=== PATIENT | female | born 1960 | race Two or more races ===

== ENCOUNTER 2024-05-02 13:28 | Inpatient (IN) | payer MEDICAID, OTHER ==
[~2024-05-02] VITALS: Ht 154.9 cm; Wt 11.5 kg
--- NOTE | 2024-05-02 13:37 | ED.PDOC ---
History of Present Illness HPI Comments 63-year-old female came to the ER stating that she has been having abdominal pain for the past three days. Abdominal pain associated with nausea but no vomiting or diarrhea. She has the pain is mostly in the suprapubic region. States that she does have a history of a kidney stones. Pain is 8/10 with no relief with Tylenol. History of diabetes. Denies any other symptoms. Time Seen by MD: 13:32 Reviewed Notes: Nurses Notes, Medications, Allergies Information Source: Patient Mode of Arrival: Ambulatory Severity: Moderate Timing: Days Duration: Since onset Past Medical History PAST MEDICAL HISTORY: DM Surgical History: Denies all surgeries BOTTOM CEMENTER History: No Pertinent BOTTOM CEMENTER History Social History Smoker: Non-Smoker Alcohol: Denies ETOH Use Drugs: Denies Drug Use Constitutional: denies: chills, diaphoresis, fatigue, fever, malaise, sweats, weakness, others EENTM: denies: blurred vision, double vision, ear bleeding, ear discharge, ear drainage, ear pain, ear ringing, eye pain, eye redness, hearing loss, mouth pain, mouth swelling, nasal discharge, nose bleeding, nose congestion, nose pain, photophobia, tearing, throat pain, throat swelling, voice changes, others Respiratory: denies: cough, hemoptysis, orthopnea, SOB at rest, shortness of breath, SOB with excertion, stridor, wheezing, others Cardiovascular: denies: chest pain, dizzy spells, diaphoresis, Dyspnea on exertion, edema, irregular heart beat, left arm pain, lightheadedness, palpitations, PND, syncope, others Gastrointestinal: reports: abdominal pain, nausea; denies: abdomen distended, blood streaked bowels, constipated, diarrhea, dysphagia, difficulty swallowing, hematemesis, melena, poor appetite, poor fluid intake, rectal bleeding, rectal pain, vomiting, others Genitourinary: denies: abnormal vagina bleeding, burning, dyspareunia, dysuria, flank pain, frequency, hematuria, incontinence, pain, , vagina discharge, urgency, others Neurological: denies: dizziness, fainting, headache, left sided numbness, left sided weakness, numbness, paresthesia, pre-existing deficit, right sided numbness, right sided weakness, seizure, speech problems, tingling, tremors, weakness, others Musculoskeletal: denies: back pain, gout, joint pain, joint swelling, muscle pain, muscle stiffness, neck pain, others Integumetry: denies: bruises, change in color, change in hair/nails, dryness, laceration, lesions, lumps, rash, wounds, others Allergic/Immunocompromised: denies: Difficulty Healing, Frequent Infections, Hives, Itching, others Hematologic/Lymphatic: denies: anemia, blood clots, easy bleeding, easy bruising, swollen glands, others Endocrine: denies: excessive hunger, excessive sweating, excessive thirst, excessive urination, flushing, intolerance to cold, intolerance to heat, unexplained weight gain, unexplained weight loss, others Psychiatric: denies: anxiety, bipolar disorder, depression, hopeless, panic disorder, schizophrenia, sleepless, suicidal, others Physical Exam General Appearance: Moderate Distress HEENT: Normal ENT Inspection, Pharynx Normal, TMs Normal Neck: Full Range of Motion, Non-Tender, Normal, Normal Inspection Respiratory: Chest Non-Tender, Lungs Clear, No Accessory Muscle Use, No Respiratory Distress, Normal Breath Sounds Cardiovascular: No Edema, No JVD, No Murmur, No Gallop, Normal Peripheral Pulses, Regular Rate/Rhythm Breast Exam: Deferred Gastrointestinal: Soft Genitalia: Deferred Pelvic: Deferred Rectal: Deferred Extremities: No calf tenderness, Normal capillary refill, Normal inspection, Normal range of motion, Non-tender, No pedal edema Musculoskeletal : Apperance: Normal 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 Was a procedure done?: No Differential Dx Considerations may include: Colitis Electrolyte imbalance X-Ray, Labs, Meds, VS Vital Signs Date Time Temp Pulse Resp B/P (MAP) Pulse Ox O2 Delivery O2 Flow Rate FiO2 05/02/24 13:37 97.9 82 16 131/76 (94) 98 Lab Test 05/02/24 14:42 Range/Units White Blood Count Pending Red Blood Count Pending Hemoglobin Pending Hematocrit Pending Mean Corpuscular Volume Pending Mean Corpuscular Hemoglobin Pending Mean Corpuscular Hemoglobin Concent Pending Red Cell Distribution Width Pending Platelet Count Pending Mean Platelet Volume Pending Neutrophils (%) (Auto) Pending Lymphocytes (%) (Auto) Pending Monocytes (%) (Auto) Pending Basophils (%) (Auto) Pending Neutrophils # (Auto) Pending Lymphocytes # (Auto) Pending Monocytes # (Auto) Pending Sodium Level 129 L 136-145 mmol/L Potassium Level 4.5 3.5-5.1 mmol/L Chloride Level 95 L 98-107 mmol/L Carbon Dioxide Level 24 20-31 mmol/L Anion Gap 10 5-15 Blood Urea Nitrogen 15 9-23 mg/dL Creatinine 1.17 H 0.550-1.02 mg/dL Glomerular Filtration Rate Calc 53 >90 mL/min BUN/Creatinine Ratio 12.8 10.0-20.0 Serum Glucose 496 *H 74-106 mg/dL Calcium Level 10.3 8.7-10.4 mg/dL Patient alert. Complaining of abdominal pain. Vitals stable. Ambulating. Abdomen is soft. Possible kidney stone. Establish intravenous access. Was given fluids. Was given Toradol. Explained to the patient. Continue cardiac monitoring. Time of 1ST Reevaluation: 13:36 Reevaluation 1ST: Unchanged Patient Education/Counseling: Diagnosis, Treatment, Prognosis Family Education/Counseling: Need For Follow Up Departure 1 Departure Time of Disposition: 13:37 Impression: Primary Impression: Uncontrolled diabetes mellitus Qualified Codes: E13.65 - Other specified diabetes mellitus with hyperglycemia Additional Impression: Nonspecific colitis Disposition: ADMITTED INPATIENT Admit to: Med Surg Condition: Guarded Critical Care Note Critical Care Time?: No Stability Stability form required: No Heart Score Heart Score: Heart Score Response (Comments) Value History N/A 0 EKG N/A 0 Age N/A 0 Risk Factors N/A 0 Troponin N/A 0 Total 0 MICHELLE KAPOOR MD May 02, 2024 13:37
[2024-05-02 15:20] LABS: Potassium 4.5 mmol/L (3.5-5.1)
[2024-05-02 15:21] LABS: Anion Gap 10 (5-15); Carbon Dioxide 24 mmol/L (20-31)
[2024-05-02 15:22] LABS: Calcium 10.3 mg/dL (8.7-10.4)
[2024-05-02 15:27] LABS: BUN/Creatinine Ratio 12.8 (10.0-20.0); Blood Urea Nitrogen 15 mg/dL (9-23)
[2024-05-02 15:32] LABS: Chloride 95 mmol/L (98-107); Sodium 129 mmol/L (136-145)
[2024-05-02 15:33] LABS: Basophils # (auto) 0 10 ^3/uL (0-0.2); Basophils % (auto) 0.1 % (0.0-2.0); Eosinophils # (auto) 0 10 ^3/uL (0-0.8); Glucose 496 mg/dL (74-106); Hematocrit 42.8 % (36.0-46.0); Hemoglobin 14.4 g/dL (12.2-16.2); Lymphocytes # (auto) 0.9 10 ^3/uL (0.4-5.4); Mean Corpuscular Hemoglobin 30.2 pg (28.0-32.0); Mean Corpuscular Hgb Conc. 33.7 g/dL (32.0-36.0); Mean Corpuscular Volume 89.6 fL (80.0-100.0); Monocytes # (auto) 0.9 10 ^3/uL (0-1.3); Monocytes % (auto) 4.9 % (0.0-12.0); Nucleated Red Blood Cells % 0.1 %; Platelet Count (auto) 182 10^3/uL (140-450); Red Blood Cells 4.77 10^6/uL (4.0-5.20); White Blood Cell 18.8 10^3/uL (4.4-10.8)
--- NOTE | 2024-05-02 16:58 | DVH ---
Procedure: CT CT AB PEL WO CON-NO ORAL OR IV 05/02/2024 04:11 PM Indication: colitis Comparison Study: None available at time of dictation. Technique: Axial images were obtained and reformatted in coronal and sagittal planes. All CT scans at this medical facility are performed using dose modulation techniques as appropriate t o a performed exam including the following: Automated exposure control was utilized; adjustment of th e MA and/or KV according to patient size; and use of iterative reconstruction technique. CT Dose: CTDI volume is 5.8 mGy. Dose-length product is 301 mGy*cm FINDINGS: Lower Chest: Unremarkable. Hepatobiliary: Gallbladder is markedly distended, thick-walled with extensive pericholecystic inflamm ation. Several subcentimeter gallstones are noted in the region of the fundus. Moderate hepatomegaly and hepatic steatosis.. Spleen: Unremarkable. Pancreas: Unremarkable. Adrenal Glands: Unremarkable. tract: The kidneys are normal in size bilaterally without hydronephrosis . Few tiny nonobstructin g right renal calculi are seen. The urinary bladder is unremarkable. GI tract: The stomach is grossly normal in appearance. No evidence of small bowel obstruction. The la rge bowel is unremarkable. Lymphatics: No mesenteric, retroperitoneal or periportal lymphadenopathy. Vasculature: The abdominal aorta is normal in in caliber. Pelvic Organs: Unremarkable Bones/soft tissues: No acute abnormality. Other: None. IMPRESSION: 1. Findings compatible with unoncomplicated acute cholecystitis. Recommend surgical consultation. 2. Moderate hepatomegaly and hepatic steatosis. .
[2024-05-02 17:15] LABS: Lactic Acid w/Reflex 2.4 mmol/L (0.4-2.0)
[2024-05-02] MEDS: SODIUM CHLORIDE 0.9% 1,000 ML IVB ONE (18:20)
[2024-05-02] MEDS: SODIUM CHLORIDE 0.9% 1,450 ML IV ONE (18:21)
[2024-05-02] MEDS: ONDANSETRON HCL 4 MG/2 ML VIAL IV ONE (18:51)
[2024-05-02] MEDS: PIPERACILLIN-TAZOB 3.375GM 100 ML IV ONE (18:52)
[2024-05-02] MEDS: InsuLIN REG 1unit/0.01ml Soln (100units/ml) IV ONE (18:52)
[2024-05-02] MEDS ORDERED: DEXTROSE (50%) 50ML SYRG IV PRN (19:30)
[2024-05-02] MEDS ORDERED: ONDANSETRON HCL 4 MG/2 ML VIAL IV PRN (19:30)
[2024-05-02] MEDS ORDERED: MORPHINE SULFATE INJ 2 MG/ml SYRG IV PRN (19:45)
[2024-05-02 20:29] LABS: INR 1.41 (0.9-1.15); Prothrombin Time 14.4 sec (9.3-11.8)
[2024-05-02 20:35] LABS: Urine Bacteria None Seen /hpf (None Seen)
--- NOTE | 2024-05-02 20:44 | ECG ---
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
--- NOTE | 2024-05-02 20:53 | DVH ---
CHEST RADIOGRAPH Indication: admission Technique: Single frontal view of the chest was obtained Comparison: None FINDINGS: Lines and Tubes: None Lungs: Bilateral perihilar peribronchial thickening. Findings may represent bronchitis. Pleura: No effusion. No pneumothorax. Cardiomediastinal contours: Unremarkable Bones: No acute osseous abnormality. IMPRESSION: 1. Findings may represent bronchitis.
[2024-05-02 21:22] LABS: Urine Blood Negative /uL (Negative); Urine Clarity Clear (Clear); Urine Color Yellow (Yellow); Urine Protein, UAD TRACE (Negative); Urine Specific Gravity 1.026 (1.001-1.035); Urine Squamous Epithelial Cell FEW /hpf (<5); Urine Urobilinogen Normal (Negative); Urine WBC 2 /HPF (0-5); Urine pH 5.5 (5.0-9.0)
[2024-05-02] MEDS: ACCU-CHEK COMFORT CURVE STRIP VI SCH (23:05)
[2024-05-02] MEDS: InsuLIN REG 1unit/0.01ml Soln (100units/ml) SC SCH (23:15)
[2024-05-02] MEDS: ACETAMINOPHEN 325 MG TAB PO PRN (23:17)
[2024-05-03] VITALS (9 sets, daily range): BP systolic 99–137; BP diastolic 55–78; PULSE 101–133; RESP 14–18; TEMP 97.9–100.1; O2SAT 91–99
[2024-05-03] MEDS: PIPERACILLIN-TAZOB 3.375GM 100 ML IV SCH (00:17)
[2024-05-03] MEDS: SODIUM CHLORIDE 0.9% 1,000 ML IV SCH (00:17)
[2024-05-03] MEDS: HYDROcodone-ACET 5/325MG TAB PO PRN (00:19)
--- NOTE | 2024-05-03 00:20 | DVHHP2 ---
Admitting Diagnosis: Acute Cholecystitis, DM with uncontrolled hyperglycemia History of Present Illness History Source: Patient Exam Limitations: No limitations HPI Mrs. Citlali Blake is a 63 yo female with known history of kidney stones, DM presents to the hospital with abdominal pain, nausea, and vomiting. Patient reports she has no history of gallstones. Patient endorses she did not have medical and therefore she has not been able to take her antidiabetic medications due to no prescription, she reports otherwise she is compliant with her home medications. Patient CT abdomen/pelvis resulted 1. Findings compatible with unoncomplicated acute cholecystitis. Recommend surgical consultation. 2. 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 Past Medical History Cardiac: No pertinent Hx Pulmonary: No pertinent Hx Central Nervous System: No pertinent Hx GI: No pertinent Hx Hemotology/Oncology: No pertinent Hx Hepatobiliary: No pertinent Hx Psychiatric: No pertinent Hx Musculoskeletal: No pertinent Hx Rheumotologic: No pertinent Hx Infectious Disease: No peritnent Hx ENT: No pertinent Hx Renal/: No pertinent Hx Endocrine: NIDDM Dermatology: No pertinent Hx Others kidney stones Smoker: No Hx (Negative) Alocohol: None Drugs: None Lives with: With family Domestic Violence: Neg Review of Systems Constitutional: No symptom reported Ears, Nose, & Throat: No symptom reported Eyes: No symptom reported Pulmonary/Respiratory: No symptom reported Cardiovascular: No symptom reported Gastrointestinal: Nausea, Vomiting, Abdominal Pain Genitourinary: No symptom reported Musculoskeletal: No symptom reported Skin: No symptom reported Psychiatric: No symptom reported Endocrine: No symptom reported Hemotologic/Lymphatic: No symptom reported H&P Exam Vital Signs Vital Signs Date Time Temp Pulse Resp B/P (MAP) Pulse Ox O2 Delivery O2 Flow Rate FiO2 05/02/24 23:17 100.7 05/02/24 23:06 Room Air* 0 21 05/02/24 23:05 102 20 97 05/02/24 23:05 127/71 (89) General Appeara: Well developed, Well nourished, Normal Appearance Head Exam: Normal inspection Neck Exam: Normal inspection, Non-tender, Normal alignment Eye Exam: bilateral eye Normal inspection, bilateral eye PERRL, bilateral eye EOMI Ear Exam: bilateral ear Auricle normal Nasal Exam: Normal inspection Mouth: Normal Inspection Pulmonary/Respiratory: Normal inspection, Normal breath sounds, Chest non- tender, Lungs clear Cardiovascular/Chest: Normal inspection, Regular rate, Normal Rhythm Peripheral Pulses: 2+ dorsalis pedis (R), 2+ dorsalis pedis (L), 2+ Radial (R), 2+ Radial (L) Abdominal Exam: Normal bowel sounds, Soft, No tenderness Abdominal Pain Onset Location: Generalized abdomen Rectal Exam: Deferred Back Exam: Normal inspection Pelvic 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: Normal hearing, Normal speech, PERRL Motor/Sensory: Normal sensory function, Normal motor function Neuro/Mental St: Alert, Oriented Appearance: Appropriate appearance, Appropriate insight Eye contact/ Speech: Cooperative, Good eye contact, Normal speech Thoughts/Psych: Normal thought pattern Skin Exam: Normal inspection, Normal color, Warm/dry Labs/Xrays Labs Test 05/02/24 23:04 05/02/24 20:06 05/02/24 19:56 05/02/24 19:04 Range/Units POC Glucose 325 H 70-106 mg/dl Urine Color Yellow Yellow Urine Clarity Clear Clear Urine pH 5.5 5.0-9.0 Urine Specific [place] 1.026 1.001-1.035 Urine Protein Trace H Negative Urine Ketones 1+ H Negative Urine Blood Negative Negative /uL Urine Nitrite Negative Negative Urine Bilirubin Negative Negative Urine Urobilinogen Normal Negative mg/dL Urine Leukocyte Esterase Negative Negative /uL Urine RBC 1 0 - 4 /hpf Urine Microscopic WBC 2 0-5 /HPF Urine Squamous Epithelial Cells Few <5 /hpf Urine Bacteria None seen None Seen /hpf Urine Glucose 4+ H Normal mg/dL Prothrombin Time 14.4 H 9.3-11.8 sec Prothrombin Time INR 1.41 H 0.9-1.15 Lactic Acid Level 2.0 0.4-2.0 mmol/L Test 05/02/24 14:42 Range/Units White Blood Count 18.8 H 4.4-10.8 10^3/uL Red Blood Count 4.77 4.0-5.20 10^6/uL Hemoglobin 14.4 12.2-16.2 g/dL Hematocrit 42.8 36.0-46.0 % Mean Corpuscular Volume 89.6 80.0-100.0 fL Mean Corpuscular Hemoglobin 30.2 28.0-32.0 pg Mean Corpuscular Hemoglobin Concent 33.7 32.0-36.0 g/dL Red Cell Distribution Width 13.0 11.8-14.3 % Platelet Count 182 140-450 10^3/uL Mean Platelet Volume 10.3 6.9-10.8 fL Neutrophils (%) (Auto) 90.0 H 37.0-80.0 % Lymphocytes (%) (Auto) 5.0 L 10.0-50.0 % Monocytes (%) (Auto) 4.9 0.0-12.0 % Eosinophils (%) (Auto) 0.0 0.0-7.0 % Basophils (%) (Auto) 0.1 0.0-2.0 % Neutrophils # (Auto) 17.0 H 1.6-8.6 10 ^3/uL Lymphocytes # (Auto) 0.9 0.4-5.4 10 ^3/uL Monocytes # (Auto) 0.9 0-1.3 10 ^3/uL Eosinophils # (Auto) 0 0-0.8 10 ^3/uL Basophils # (Auto) 0 0-0.2 10 ^3/uL Nucleated Red Blood Cells 0.1 % Sodium Level 129 L 136-145 mmol/L Potassium Level 4.5 3.5-5.1 mmol/L Chloride Level 95 L 98-107 mmol/L Carbon Dioxide Level 24 20-31 mmol/L Anion Gap 10 5-15 Blood Urea Nitrogen 15 9-23 mg/dL Creatinine 1.17 H 0.550-1.02 mg/dL Glomerular Filtration Rate Calc 53 >90 mL/min BUN/Creatinine Ratio 12.8 10.0-20.0 Serum Glucose 496 *H 74-106 mg/dL Calcium Level 10.3 8.7-10.4 mg/dL Assessment/Plan Problem List: (1) Acute cholecystitis (2) Uncontrolled diabetes mellitus Plan This is a 63 yo female with known history of kidney stones, DM who presents with abdominal pain, nausea, vomiting. Patient found to have 1. Acute Cholecystitis 2. DM with uncontrolled hyperglycemia Plan Admit Telemetry General surgeon consultation IV fluids IV antibiotic Zosyn NPO Monitor BMP, CBC, lactic level Glucose monitoring AC & HS coverage with regular insulin sliding scale Discussed all above with patient in Thai. Patient verbalizes agreement and understanding of care plan. All questions were answered. Discussed assessment and care plan with supervising MD. Plan discussed with: Patient, Other Code Visit Code Visit Total Time (mins): 45 Additional Comments Additional Comments Additional Comments 63-year-old female with a known history of diabetes mellitus type 2 who initially presented to the hospital with abdominal pain nausea vomiting worsening for last two three days found to have 1. Sepsis secondary to acute cholecystitis /cholangitis 2. Acute cholecystitis 3. Gram-negative bacteremia 4. Leukocytosis 45. Uncontrolled hyperglycemia in the setting of diabetes mellitus type 2 -IV fluids, IV antibiotics, repeat blood cultures, infectious disease consultation and General surgery consultation. -check hemoglobin A1c, moderate dose insulin sliding scale IVAN RIVERA May 03, 2024 00:20 TRESA ASENCIO MD May 03, 2024 16:37
[2024-05-03 06:01] LABS: Chloride 102 mmol/L (98-107); Potassium 4.1 mmol/L (3.5-5.1)
[2024-05-03 06:02] LABS: Anion Gap 10 (5-15); Calcium 9.7 mg/dL (8.7-10.4); Carbon Dioxide 23 mmol/L (20-31)
[2024-05-03 06:05] LABS: Basophils # (auto) 0 10 ^3/uL (0-0.2); Basophils % (auto) 0.2 % (0.0-2.0); Eosinophils # (auto) 0 10 ^3/uL (0-0.8); Eosinophils % (auto) 0.2 % (0.0-7.0); Hematocrit 36.1 % (36.0-46.0); Hemoglobin 12.1 g/dL (12.2-16.2); Lymphocytes # (auto) 0.6 10 ^3/uL (0.4-5.4); Lymphocytes % (auto) 4.1 % (10.0-50.0); Mean Corpuscular Hemoglobin 29.8 pg (28.0-32.0); Mean Corpuscular Hgb Conc. 33.5 g/dL (32.0-36.0); Mean Corpuscular Volume 89.2 fL (80.0-100.0); Monocytes # (auto) 0.9 10 ^3/uL (0-1.3); Monocytes % (auto) 5.9 % (0.0-12.0); Neutrophils # (auto) 14.2 10 ^3/uL (1.6-8.6); Neutrophils % (auto) 89.6 % (37.0-80.0); Platelet Count (auto) 155 10^3/uL (140-450); Red Blood Cells 4.05 10^6/uL (4.0-5.20); Red Cell Distribution Width 13.3 % (11.8-14.3); White Blood Cell 15.8 10^3/uL (4.4-10.8)
[2024-05-03 06:07] LABS: BUN/Creatinine Ratio 14.1 (10.0-20.0); Blood Urea Nitrogen 11 mg/dL (9-23)
[2024-05-03 06:26] LABS: Glucose 253 mg/dL (74-106); Sodium 135 mmol/L (136-145)
[2024-05-03 09:23] LABS: Albumin 3.8 g/dL (3.2-4.8); Anion Gap 13 (5-15); Aspartate Aminotransferase 36 U/L (13-40); BUN/Creatinine Ratio 15.8 (10.0-20.0); Blood Urea Nitrogen 12 mg/dL (9-23); Calcium 9.7 mg/dL (8.7-10.4); Carbon Dioxide 20 mmol/L (20-31); Chloride 103 mmol/L (98-107); Potassium 4.3 mmol/L (3.5-5.1); Sodium 136 mmol/L (136-145); Total Protein 6.8 g/dL (5.7-8.2)
[2024-05-03] MEDS: PANTOPRAZOLE 40 MG/10 ML VIAL INJ IV SCH (09:28)
[2024-05-03] MEDS: SOD CHL 0.45% WITH 20MEQ KCL 1,000 ML IV SCH (09:28)
[2024-05-03 09:29] LABS: Alanine Aminotransferase 53 U/L (7-40); Alkaline Phosphatase 199 U/L (46-116); Bilirubin, Total 2.8 mg/dL (0.2-1.0); Glucose 254 mg/dL (74-106)
[2024-05-03] MEDS: PHYTONADIONE (VIT K)10 MG/ML 1ML VIAL SUBCUT ONE (09:30)
[2024-05-03] MEDS ORDERED: ENOXAPARIN SOD 40 MG/0.4 ML SYRINGE SC SCH (10:00)
--- NOTE | 2024-05-03 12:13 | DVHINCON2 ---
Date of service: May 03, 2024 Family History: Patient reports no known family medical history. Allergies: Coded Allergies: NO KNOWN ALLERGIES (Unverified , 05/02/24) Current Medications Current Medications Medications (Trade) Dose Ordered Sig/Devaughn Route PRN Reason Start Time Stop Time Status Last Admin Piperacillin Sod/ Tazobactam Sod 100 ml @ 100 mls/hr Q8HR IV 05/02/24 22:00 05/03/24 06:26 Sodium Chloride 1,000 ml @ 100 mls/hr Q10H IV 05/02/24 19:30 05/03/24 08:22 DC 05/03/24 00:17 Diagnostic Test (Pha) (Accu-Chek Comfort Curve T) 1 strip ACHS 05/02/24 22:00 05/03/24 11:55 Insulin Human Regular (InsuLIN R) ACHS SC 05/02/24 22:00 05/03/24 06:41 Dextrose 50 ml UD PRN IV Blood Sugar LESS THAN 60 05/02/24 19:30 Ondansetron HCl (Zofran) 4 mg Q6HP PRN IV NAUSEA / VOMITING 05/02/24 19:30 Enoxaparin Sodium (Lovenox) 40 mg DAILY SC 05/03/24 10:00 05/03/24 08:22 DC Pantoprazole Sodium (Protonix) 40 mg DAILY IV 05/03/24 10:00 05/03/24 09:28 Acetaminophen (Tylenol Tablet) 650 mg Q6HPRN PRN PO TEMP GREATER THAN 100.4 05/02/24 19:45 05/02/24 23:17 Acetaminophen/ Hydrocodone Bitart ([place] 5/325MG Tab) 1 tab Q6HPRN PRN PO PAIN SCALE 1 THRU 6 05/02/24 19:45 05/03/24 06:31 Morphine Sulfate 2 mg Q6HPRN PRN IV PAIN SCALE 7 THRU 10 05/02/24 19:45 Potassium Chloride/Sodium Chloride 1,000 ml @ 120 mls/hr Q8H20M IV 05/03/24 08:15 05/03/24 09:28 Vital Signs Vital Signs Date Time Temp Pulse Resp B/P (MAP) Pulse Ox O2 Delivery O2 Flow Rate FiO2 05/03/24 08:56 98.4 101 16 110/61 (77) 95 98.4 05/03/24 07:45 Room Air* 0 21 Labs/Diagnostic Data Labs Test 05/03/24 06:37 05/03/24 05:38 05/02/24 20:06 05/02/24 19:56 Range/Units POC Glucose 238 H 70-106 mg/dl White Blood Count 15.8 H 4.4-10.8 10^3/uL Red Blood Count 4.05 4.0-5.20 10^6/uL Hemoglobin 12.1 #L 12.2-16.2 g/dL Hematocrit 36.1 # 36.0-46.0 % Mean Corpuscular Volume 89.2 80.0-100.0 fL Mean Corpuscular Hemoglobin 29.8 28.0-32.0 pg Mean Corpuscular Hemoglobin Concent 33.5 32.0-36.0 g/dL Red Cell Distribution Width 13.3 11.8-14.3 % Platelet Count 155 140-450 10^3/uL Mean Platelet Volume 10.0 6.9-10.8 fL Neutrophils (%) (Auto) 89.6 H 37.0-80.0 % Lymphocytes (%) (Auto) 4.1 L 10.0-50.0 % Monocytes (%) (Auto) 5.9 0.0-12.0 % Eosinophils (%) (Auto) 0.2 0.0-7.0 % Basophils (%) (Auto) 0.2 0.0-2.0 % Neutrophils # (Auto) 14.2 H 1.6-8.6 10 ^3/uL Lymphocytes # (Auto) 0.6 0.4-5.4 10 ^3/uL Monocytes # (Auto) 0.9 0-1.3 10 ^3/uL Eosinophils # (Auto) 0 0-0.8 10 ^3/uL Basophils # (Auto) 0 0-0.2 10 ^3/uL Nucleated Red Blood Cells 0.0 % Sodium Level 136 136-145 mmol/L Potassium Level 4.3 3.5-5.1 mmol/L Chloride Level 103 98-107 mmol/L Carbon Dioxide Level 20 20-31 mmol/L Anion Gap 13 5-15 Blood Urea Nitrogen 12 9-23 mg/dL Creatinine 0.76 0.550-1.02 mg/dL Glomerular Filtration Rate Calc 89 >90 mL/min BUN/Creatinine Ratio 15.8 10.0-20.0 Serum Glucose 254 H 74-106 mg/dL Lactic Acid Level 1.3 0.4-2.0 mmol/L Calcium Level 9.7 8.7-10.4 mg/dL Total Bilirubin 2.8 H 0.2-1.0 mg/dL Aspartate Amino Transferase (AST) 36 13-40 U/L Alanine Aminotransferase (ALT) 53 H 7-40 U/L Alkaline Phosphatase 199 H 46-116 U/L Total Protein 6.8 5.7-8.2 g/dL Albumin 3.8 3.2-4.8 g/dL Urine Color Yellow Yellow Urine Clarity Clear Clear Urine pH 5.5 5.0-9.0 Urine Specific [place] 1.026 1.001-1.035 Urine Protein Trace H Negative Urine Ketones 1+ H Negative Urine Blood Negative Negative /uL Urine Nitrite Negative Negative Urine Bilirubin Negative Negative Urine Urobilinogen Normal Negative mg/dL Urine Leukocyte Esterase Negative Negative /uL Urine RBC 1 0 - 4 /hpf Urine Microscopic WBC 2 0-5 /HPF Urine Squamous Epithelial Cells Few <5 /hpf Urine Bacteria None seen None Seen /hpf Urine Glucose 4+ H Normal mg/dL Prothrombin Time 14.4 H 9.3-11.8 sec Prothrombin Time INR 1.41 H 0.9-1.15 Microbiology Date/Time Source Procedure Growth Status 05/02/24 16:44 Blood Blood Culture - Preliminary Resulted Assessment 63 YEAR OLD FEMALE WITH TWO DAYS OF ABDOMINAL PAIN MOSTLY IN THE RIGHT UPPER QUADRANT, TENDER ABDOMEN IN THE RUQ, DOCUMENTED CHOLELITHIASIS AND FLUID AROUND THE GALLBLADDER. HER PT/INR NEED TO BE CORRECTED PRIOR TO OPERATION. I HAVE EXPLAINED THE PROCEDURE, RISKS AND COMPLICATIONS IN DETAIL IN DANISH TO HER. Plan discussed with: Patient SANG ORTIZ MD May 03, 2024 12:13
--- NOTE | 2024-05-03 17:13 | ECG ---
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
[2024-05-04] VITALS (8 sets, daily range): BP systolic 98–127; BP diastolic 47–77; PULSE 62–134; RESP 16–18; TEMP 97.5–98.8; O2SAT 88–99
[2024-05-04 06:02] LABS: Basophils # (auto) 0 10 ^3/uL (0-0.2); Basophils % (auto) 0.1 % (0.0-2.0); Eosinophils # (auto) 0 10 ^3/uL (0-0.8); Eosinophils % (auto) 0.1 % (0.0-7.0); Hematocrit 33.9 % (36.0-46.0); Hemoglobin 11.5 g/dL (12.2-16.2); Lymphocytes # (auto) 0.9 10 ^3/uL (0.4-5.4); Lymphocytes % (auto) 5.7 % (10.0-50.0); Mean Corpuscular Hemoglobin 30.2 pg (28.0-32.0); Mean Corpuscular Hgb Conc. 33.8 g/dL (32.0-36.0); Mean Corpuscular Volume 89.4 fL (80.0-100.0); Monocytes # (auto) 1.5 10 ^3/uL (0-1.3); Monocytes % (auto) 9.5 % (0.0-12.0); Neutrophils # (auto) 13.4 10 ^3/uL (1.6-8.6); Neutrophils % (auto) 84.6 % (37.0-80.0); Platelet Count (auto) 178 10^3/uL (140-450); Red Cell Distribution Width 13.2 % (11.8-14.3); White Blood Cell 15.9 10^3/uL (4.4-10.8)
[2024-05-04 06:11] LABS: Anion Gap 16 (5-15); Chloride 104 mmol/L (98-107); Potassium 3.6 mmol/L (3.5-5.1); Sodium 137 mmol/L (136-145)
[2024-05-04 06:12] LABS: Calcium 9.3 mg/dL (8.7-10.4)
[2024-05-04 06:15] LABS: INR 1.3 (0.9-1.15); Partial Thromboplastin Time 35.9 SEC (24.5-34.5); Prothrombin Time 13.4 sec (9.3-11.8)
[2024-05-04 06:17] LABS: BUN/Creatinine Ratio 15.2 (10.0-20.0); Blood Urea Nitrogen 12 mg/dL (9-23)
[2024-05-04 06:25] LABS: Carbon Dioxide 17 mmol/L (20-31); Glucose 218 mg/dL (74-106)
[2024-05-04] MEDS: PHYTONADIONE (VIT K)10 MG/ML 1ML VIAL SUBCUT ONE (09:26)
[2024-05-04 11:02] LABS: Hepatitis B Surface Antigen Negative (Negative)
[2024-05-04 11:14] LABS: Hepatitis C Antibody Negative (Negative)
[2024-05-04 11:29] LABS: INR 1.26 (0.9-1.15); Partial Thromboplastin Time 34.3 SEC (24.5-34.5); Prothrombin Time 13.1 sec (9.3-11.8)
[2024-05-04] MEDS ORDERED: PROPOFOL 10 MG/ML 20 ML IV ONE (13:28)
[2024-05-04] MEDS ORDERED: ROCURONIUM 10MG/ML 10ML VIAL IV ONE (13:28)
[2024-05-04] MEDS ORDERED: fentaNYL CITRATE 100 MCG/2 ML VL ONE (14:02)
--- NOTE | 2024-05-04 14:03 | DVHPN2 ---
Subjective Patient is scheduled for surgery today. 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 Medications Current Medications Medications Dose Ordered Sig/Devaughn Route Start Time Stop Time Status Last Admin Dose Admin Piperacillin Sod/ Tazobactam Sod 100 ml @ 100 mls/hr Q8HR IV 05/02/24 22:00 05/04/24 06:24 100 MLS/HR Diagnostic Test (Pha) 1 strip ACHS 05/02/24 22:00 05/04/24 12:27 1 STRIP Insulin Human Regular ACHS SC 05/02/24 22:00 05/04/24 12:28 4 UNITS Dextrose 50 ml UD PRN IV 05/02/24 19:30 Ondansetron HCl 4 mg Q6HP PRN IV 05/02/24 19:30 Pantoprazole Sodium 40 mg DAILY IV 05/03/24 10:00 05/04/24 09:26 40 MG Acetaminophen 650 mg Q6HPRN PRN PO 05/02/24 19:45 05/02/24 23:17 650 MG Acetaminophen/ Hydrocodone Bitart 1 tab Q6HPRN PRN PO 05/02/24 19:45 05/03/24 06:31 1 TAB Morphine Sulfate 2 mg Q6HPRN PRN IV 05/02/24 19:45 Potassium Chloride/Sodium Chloride 1,000 ml @ 120 mls/hr Q8H20M IV 05/03/24 08:15 05/03/24 09:28 120 MLS/HR Laboratory Results Laboratory Tests 05/04/24 05:30 Chemistry Test 05/04/24 05:30 Calcium Level 9.3 mg/dL (8.7-10.4) Coagulation Test 05/04/24 05:30 2/5/25 10:54 Prothrombin Time 13.4 sec (9.3-11.8) H 13.1 sec (9.3-11.8) H Prothrombin Time INR 1.30 (0.9-1.15) H 1.26 (0.9-1.15) H Activated Partial Thromboplast Time 35.9 SEC (24.5-34.5) H 34.3 SEC (24.5-34.5) Urinalysis Test 05/02/24 20:06 Urine Color Yellow (Yellow) Urine Clarity Clear (Clear) Urine pH 5.5 (5.0-9.0) Urine Specific [place] 1.026 (1.001-1.035) Urine Protein Trace (Negative) H Urine Ketones 1+ (Negative) H Urine Blood Negative /uL (Negative) Urine Nitrite Negative (Negative) Urine Bilirubin Negative (Negative) Urine Urobilinogen Normal mg/dL (Negative) Urine Leukocyte Esterase Negative /uL (Negative) Urine RBC 1 /hpf (0 - 4) Urine Microscopic WBC 2 /HPF (0-5) Urine Squamous Epithelial Cells Few /hpf (<5) Urine Bacteria None seen /hpf (None Seen) Urine Glucose 4+ mg/dL (Normal) H Microbiology Microbiology Date/Time Source Procedure Growth Status 05/02/24 16:44 Blood Blood Culture - Preliminary NO GROWTH AFTER 24 HOURS OF INCUBATION. Resulted Assessment/Plan Assessment/Plan 63-year-old female with a known history of diabetes mellitus type 2 who initially presented to the hospital with abdominal pain nausea vomiting worsening for last two three days found to have 1. Sepsis secondary to acute cholecystitis /cholangitis 2. Acute cholecystitis 3. Gram-negative bacteremia 4. Leukocytosis -continue antibiotics, general surgery intervention today Plan discussed with: Patient My Orders Orders - TRESA ASENCIO MD Procedure Category Date Status Time * Infectious [place]- CONS 05/03/24 Transmitted K Kevin 16:32 Blood Culture RADHA 05/03/24 In Process 16:32 Date of Service: May 04, 2024 Billing Provider: TRESA ASENCIO MD Common Visit Codes: NOT BILLABLE TRESA ASENCIO MD May 04, 2024 14:03
[2024-05-04] MEDS ORDERED: ONDANSETRON HCL 4 MG/2 ML VIAL ONE (14:17)
[2024-05-04] MEDS: LIDOCAINE W/ EPINEPHRINE 1% 20ML VIAL ONE (14:18)
[2024-05-04] MEDS: BUPIVACAINE HCL 0.25% P/F 10 ML VIAL ONE (14:18)
[2024-05-04] MEDS ORDERED: MORPHINE SULF PF 5 MG/10 ML VIAL ONE (14:20)
[2024-05-04] MEDS ORDERED: SUGAMMADEX 200mg/2ml Vial (100MG/ML) IV ONE (14:39)
[2024-05-04] MEDS: D5W/SOD CHL 0.45%/KCL 20MEQ 1,000 ML IV SCH (14:45)
[2024-05-04] MEDS ORDERED: ONDANSETRON HCL 4 MG/2 ML VIAL IV PRN (14:45)
[2024-05-04] MEDS ORDERED: HYDROmorphone HCL 2 MG/ML VL/or syr IV PRN (14:45)
--- NOTE | 2024-05-04 14:59 | DVHOP ---
DATE OF SURGERY: 05/04/2024 SURGEON: Arnel Lorenzo MD CLAIMS ACCOUNT SPECIALIST: Daniel Santillan. ANESTHESIA: General endotracheal. ANESTHESIOLOGIST: Dr. Schofield. PROCEDURES: Laparoscopy, laparoscopic cholecystectomy. DESCRIPTION OF PROCEDURE: Under general endotracheal anesthesia, with the patient's skin prepped and draped, a supraumbilical incision was made and Veress needle inserted by the hanging drop technique in order to establish pneumoperitoneum to 15 mmHg pressure by insufflation with carbon dioxide. With the abdomen fully distended, the needle was removed and replaced with a 5 mm trocar port through which a 0-degree viewing laparoscope was inserted and under direct vision, 5 and 10 mm ports were inserted through the anterior axillary line at the level of the umbilicus and the subxiphoid skin in the midline respectively. Instrumentation was introduced. Laparoscopy was performed and was hampered by the patient's obesity and a phlegmon in the right upper quadrant, which contained omentum and pus in the gallbladder and the edge of the right lobe of the liver. This was divided bluntly and the pus was cultured. Cultures and sensitivity of the peritoneal pus was submitted and subsequently, the gallbladder due to its distention was aspirated of purulent material. This was submitted separately as bile for cultures and sensitivities. The gallbladder was then placed on tension. The cystic duct and cystic artery were identified, circumferentially dissected, skeletonized and traced into the hepatocystic triangle so as to minimize the potential for inadvertent injury to the common bile duct. Following division of the cystic duct and cystic artery between metallic clips, the gallbladder was resected from its liver bed by electrocautery and traction. The gallbladder was partially intrahepatic. Due to the infection and the intrahepatic nature of part of the gallbladder, a 10 mm Jeremias-Gutiérrez drain was placed underneath the right lobe of the liver and exteriorized through the 5 mm port site on the right flank, secured with a 2-0 nylon suture. Right upper quadrant was profusely irrigated, irrigant was aspirated. Hemostasis was meticulously accomplished, found to be complete. At the termination of procedure, there was no evidence of bleeding from either the cholecystectomy site or from the port sites. Instrumentation was withdrawn. Pneumoperitoneum was evacuated. Fascial defect closed using 0 Vicryl. Wounds approximated using Monocryl sutures, Dermabond glue and Steri-Strips. The patient remained stable throughout the procedure, left the operating room following an accurate needle and sponge count. An attempt at communicating with the , Gavin, at [phone] went unanswered. Arnel Lorenzo MD PF/KRISTEL TID: [id number] RECEIPT: [id number]
[2024-05-04] MEDS ORDERED: ACETAMINOPHEN IV 1000 MG/100ML (10MG/ML) IV ONE (15:15)
[2024-05-04] MEDS: HYDROmorphone HCL 2 MG/ML VL/or syr ONE (15:17)
[2024-05-04] MEDS: HYDROMORPHONE HCL 1 MG/ML INJ IV PRN (15:18)
[2024-05-04] MEDS: metroNIDAZOLE 500MG/100ML 100 ML IV SCH (21:13)
[2024-05-05] VITALS (8 sets, daily range): BP systolic 100–117; BP diastolic 60–76; PULSE 79–120; RESP 17–20; TEMP 98–99.8; O2SAT 92–96
[2024-05-05 06:35] LABS: Basophils # (auto) 0 10 ^3/uL (0-0.2); Basophils % (auto) 0.2 % (0.0-2.0); Eosinophils # (auto) 0 10 ^3/uL (0-0.8); Eosinophils % (auto) 0.3 % (0.0-7.0); Hematocrit 32.7 % (36.0-46.0); Hemoglobin 10.9 g/dL (12.2-16.2); Lymphocytes # (auto) 0.9 10 ^3/uL (0.4-5.4); Lymphocytes % (auto) 8.3 % (10.0-50.0); Mean Corpuscular Hemoglobin 29.5 pg (28.0-32.0); Mean Corpuscular Hgb Conc. 33.3 g/dL (32.0-36.0); Mean Corpuscular Volume 88.7 fL (80.0-100.0); Monocytes # (auto) 1.4 10 ^3/uL (0-1.3); Monocytes % (auto) 12.8 % (0.0-12.0); Neutrophils # (auto) 8.8 10 ^3/uL (1.6-8.6); Neutrophils % (auto) 78.4 % (37.0-80.0); Platelet Count (auto) 174 10^3/uL (140-450); Red Blood Cells 3.69 10^6/uL (4.0-5.20); Red Cell Distribution Width 13.4 % (11.8-14.3); White Blood Cell 11.2 10^3/uL (4.4-10.8)
[2024-05-05 06:40] LABS: Anion Gap 12 (5-15); Chloride 103 mmol/L (98-107); Potassium 3.5 mmol/L (3.5-5.1)
[2024-05-05 06:41] LABS: Calcium 9.1 mg/dL (8.7-10.4)
[2024-05-05 06:44] LABS: Carbon Dioxide 19 mmol/L (20-31); Sodium 134 mmol/L (136-145)
[2024-05-05 06:46] LABS: BUN/Creatinine Ratio 18.3 (10.0-20.0); Blood Urea Nitrogen 11 mg/dL (9-23)
[2024-05-05 06:47] LABS: Glucose 203 mg/dL (74-106)
[2024-05-05] MEDS: PANTOPRAZOLE 40 MG/10 ML VIAL INJ IV SCH (08:25)
--- NOTE | 2024-05-05 11:09 | DVHPN2 ---
Progress Note Date Seen: May 05, 2024 Medical Necessity Reason Pt with a Central, PICC or Fol: No Objective vital signs Vital Sign Date Time Temp Pulse Resp B/P (MAP) Pulse Ox O2 Delivery O2 Flow Rate FiO2 05/05/24 09:34 98.0 101 18 105/68 (80) 92 98.0 05/05/24 08:00 Room Air* 0 21 Total Intake and Output 05/04/24 05/04/24 05/05/24 15:00 23:00 07:00 Intake Total 200 ml 700 ml 500 ml Output Total 25 ml 30 ml 100 ml Balance 175 ml 670 ml 400 ml medications Current Medications Medications Dose Ordered Sig/Devaughn Route Start Time Stop Time Status Last Admin Dose Admin Piperacillin Sod/ Tazobactam Sod 100 ml @ 100 mls/hr Q8HR IV 05/02/24 22:00 05/05/24 05:35 100 MLS/HR Diagnostic Test (Pha) 1 strip ACHS 05/02/24 22:00 05/05/24 06:02 1 STRIP Insulin Human Regular ACHS SC 05/02/24 22:00 05/05/24 06:35 3 UNITS Dextrose 50 ml UD PRN IV 05/02/24 19:30 Pantoprazole Sodium 40 mg DAILY IV 05/03/24 10:00 05/05/24 10:03 40 MG Acetaminophen 650 mg Q6HPRN PRN PO 05/02/24 19:45 05/02/24 23:17 650 MG Acetaminophen/ Hydrocodone Bitart 1 tab Q6HPRN PRN PO 05/02/24 19:45 05/05/24 10:04 1 TAB Morphine Sulfate 2 mg Q6HPRN PRN IV 05/02/24 19:45 Potassium Chloride/Sodium Chloride 1,000 ml @ 120 mls/hr Q8H20M IV 05/03/24 08:15 05/04/24 17:24 120 MLS/HR Potassium Chloride/Dextrose/ Sod Cl 1,000 ml @ 120 mls/hr Q8H20M IV 05/04/24 14:45 Metronidazole 100 ml @ 100 mls/hr Q8HR IV 05/04/24 22:00 05/05/24 05:35 100 MLS/HR Hydromorphone HCl 1 mg Q3HPRN PRN IV 05/04/24 14:45 Pantoprazole Sodium 40 mg DAILY IV 05/05/24 10:00 Ondansetron HCl 4 mg Q4HPRN PRN IV 05/04/24 14:45 laboratory and microbiology Laboratory Tests 05/05/24 05:31 Test 05/05/24 05:31 Range/Units Serum Glucose 203 H 74-106 mg/dL Problem List/Assessment/Plan Problem List/Assessment/Plan 05/05/24 feels better, operation explained to her, she is tolerating po liquids, needs to ambulate, will advance po, she can be discharged tomorrow Plan discussed with: Patient SANG ORTIZ MD May 05, 2024 11:09
[2024-05-05] MEDS ORDERED: AUG875T PO (14:42)
[2024-05-05] MEDS ORDERED: NALO4SPR2 (14:42)
[2024-05-05] MEDS ORDERED: HYDR-4902 PO (14:42)
[2024-05-05] MEDS ORDERED: DOCU-94 PO (14:42)
[2024-05-05] MEDS ORDERED: CEFD300C2 PO (14:46)
--- NOTE | 2024-05-05 14:50 | DVHDS2 ---
Discharge Summary Date of Admission May 02, 2024 at 19:21 Date of Discharge: May 06, 2024 Labs/Diagnostic Data: Laboratory Results Test 05/05/24 11:56 05/05/24 05:31 05/04/24 10:54 05/03/24 05:38 POC Glucose 217 mg/dl (70-106) White Blood Count 11.2 10^3/uL (4.4-10.8) Red Blood Count 3.69 10^6/uL (4.0-5.20) Hemoglobin 10.9 g/dL (12.2-16.2) Hematocrit 32.7 % (36.0-46.0) Mean Corpuscular Volume 88.7 fL (80.0-100.0) Mean Corpuscular Hemoglobin 29.5 pg (28.0-32.0) Mean Corpuscular Hemoglobin Concent 33.3 g/dL (32.0-36.0) Red Cell Distribution Width 13.4 % (11.8-14.3) Platelet Count 174 10^3/uL (140-450) Mean Platelet Volume 9.0 fL (6.9-10.8) Neutrophils (%) (Auto) 78.4 % (37.0-80.0) Lymphocytes (%) (Auto) 8.3 % (10.0-50.0) Monocytes (%) (Auto) 12.8 % (0.0-12.0) Eosinophils (%) (Auto) 0.3 % (0.0-7.0) Basophils (%) (Auto) 0.2 % (0.0-2.0) Neutrophils # (Auto) 8.8 10 ^3/uL (1.6-8.6) Lymphocytes # (Auto) 0.9 10 ^3/uL (0.4-5.4) Monocytes # (Auto) 1.4 10 ^3/uL (0-1.3) Eosinophils # (Auto) 0 10 ^3/uL (0-0.8) Basophils # (Auto) 0 10 ^3/uL (0-0.2) Nucleated Red Blood Cells 0.0 % Sodium Level 134 mmol/L (136-145) Potassium Level 3.5 mmol/L (3.5-5.1) Chloride Level 103 mmol/L (98-107) Carbon Dioxide Level 19 mmol/L (20-31) Anion Gap 12 (5-15) Blood Urea Nitrogen 11 mg/dL (9-23) Creatinine 0.60 mg/dL (0.550-1.02) Glomerular Filtration Rate Calc 102 mL/min (>90) BUN/Creatinine Ratio 18.3 (10.0-20.0) Serum Glucose 203 mg/dL (74-106) Calcium Level 9.1 mg/dL (8.7-10.4) Total Bilirubin 2.0 mg/dL (0.2-1.0) Prothrombin Time 13.1 sec (9.3-11.8) Prothrombin Time INR 1.26 (0.9-1.15) Activated Partial Thromboplast Time 34.3 SEC (24.5-34.5) Hemoglobin A1c 10.8 % A1C (<5.7) Lactic Acid Level 1.3 mmol/L (0.4-2.0) Aspartate Amino Transferase (AST) 36 U/L (13-40) Alanine Aminotransferase (ALT) 53 U/L (7-40) Alkaline Phosphatase 199 U/L (46-116) Total Protein 6.8 g/dL (5.7-8.2) Albumin 3.8 g/dL (3.2-4.8) Hepatitis B Surface Antigen Negative (Negative) Hepatitis C Antibody Negative (Negative) Test 05/02/24 20:06 Urine Color Yellow (Yellow) Urine Clarity Clear (Clear) Urine pH 5.5 (5.0-9.0) Urine Specific [place] 1.026 (1.001-1.035) Urine Protein Trace (Negative) Urine Ketones 1+ (Negative) Urine Blood Negative /uL (Negative) Urine Nitrite Negative (Negative) Urine Bilirubin Negative (Negative) Urine Urobilinogen Normal mg/dL (Negative) Urine Leukocyte Esterase Negative /uL (Negative) Urine RBC 1 /hpf (0 - 4) Urine Microscopic WBC 2 /HPF (0-5) Urine Squamous Epithelial Cells Few /hpf (<5) Urine Bacteria None seen /hpf (None Seen) Urine Glucose 4+ mg/dL (Normal) Other Laboratory Tests 05/05/24 05:31 Brief Hx & Hospital Course: 63-year-old female with a known history of diabetes mellitus type 2 who initially presented to the hospital with abdominal pain nausea vomiting worsening for last two three days found to have sepsis secondary to acute cholecystitis. Patient's blood cultures came back monitor to positive for Klebsiella pneumoniae. Patient was given IV antibiotics. Patient was taken to OR by Dr. Alcazar for laparoscopic cholecystectomy. Post operative patient is doing fairly well. Patient currently tolerating clear liquid diet will be advanced to full liquid tonight and soft tomorrow morning. Patient will be given p.o. antibiotics as well as being meds as needed. Please follow up with the PCP and the General surgery in one week. Condition at Discharge: Stable Final Diagnosis/Problems List 63-year-old female with a known history of diabetes mellitus type 2 who initially presented to the hospital with abdominal pain nausea vomiting worsening for last two three days found to have 1. Sepsis secondary to acute cholecystitis /cholangitis status post laparoscopic cholecystitis 2. Acute cholecystitis 3. Gram-negative bacteremia, repeat blood cultures are negative 4. Leukocytosis Discharge Disposition: Home SNF Discharge Will this Physician continue t: No Discharge Instruct/Medications Diet: Cardiac 2g Na,low cholest Activity: See Comment Activity comment: No driving, normal signing of legal documents, no pitting on heavy machinery while on narcotics Follow Up/Referral: Follow up with the PCP in one week Follow up with Dr. Lorenzo in one week Medications: [place], cefdinir, Colace as prescribed Discharge Statement: "Patient was advised to return to the ER or call 911 if any headaches, dizziness, shortness of breath, chest pain, abdominal pain, bleeding, fevers, or worsening of medical condition. Patient was counseled about treatment plan, medications, possible side effects, patientverbalized understanding. All questions were answered to the best of my ability. This discharge took greater then 30 minutes in planning, reviewing documentation, counseling the patient, and discussing with other team members." ASSESSMENT ASSESSMENT Assessment 63-year-old female with a known history of diabetes mellitus type 2 who initially presented to the hospital with abdominal pain nausea vomiting worsening for last two three days found to have 1. Sepsis secondary to acute cholecystitis /cholangitis status post laparoscopic cholecystitis 2. Acute cholecystitis 3. Gram-negative bacteremia, repeat blood cultures are negative 4. Leukocytosis Date of Service: May 05, 2024 Billing Provider: TRESA ASENCIO MD Common Visit Codes: NOT BILLABLE TRESA ASENCIO MD May 05, 2024 14:50
--- NOTE | 2024-05-05 22:38 | DVHINCON2 ---
Date of service: May 05, 2024 Family History: Patient reports no known family medical history. Allergies: Coded Allergies: NO KNOWN ALLERGIES (Unverified , 05/02/24) Home Meds Active Scripts Cefdinir (Cefdinir) 300 Mg Cap, 1 CAP PO BID, #20 CAP Prov:TRESA ASENCIO MD 05/05/24 Docusate Sodium (Colace) 100 Mg Cap, 1 CAP PO BID PRN, #20 CAP Prov:TRESA ASENCIO MD 05/05/24 Naloxone HCl (Narcan) 4 Mg/0.1 Ml Spr, 4 MG NA CONSULAR OFFICER, #2 SPRAY Prov:TRESA ASENCIO MD 05/05/24 Hydrocodone-Acetaminophen (Hydrocodone Bitartrate/AC 5-325 mg) 1 Tab Tab, 1 TAB PO Q8HP PRN, #10 TAB Prov:TRESA ASENCIO MD 05/05/24 Current Medications Current Medications Medications (Trade) Dose Ordered Sig/Devaughn Route PRN Reason Start Time Stop Time Status Last Admin Pantoprazole Sodium (Protonix) 40 mg DAILY IV 05/05/24 10:00 Vital Signs Vital Signs Date Time Temp Pulse Resp B/P (MAP) Pulse Ox O2 Delivery O2 Flow Rate FiO2 05/05/24 20:00 120 18 92 Room Air* 0 21 05/05/24 16:30 98.3 110/76 (87) 98.3 Labs/Diagnostic Data Labs Test 05/05/24 21:07 05/05/24 05:31 05/04/24 10:54 05/03/24 05:38 Range/Units POC Glucose 200 H 70-106 mg/dl White Blood Count 11.2 #H 4.4-10.8 10^3/uL Red Blood Count 3.69 L 4.0-5.20 10^6/uL Hemoglobin 10.9 L 12.2-16.2 g/dL Hematocrit 32.7 L 36.0-46.0 % Mean Corpuscular Volume 88.7 80.0-100.0 fL Mean Corpuscular Hemoglobin 29.5 28.0-32.0 pg Mean Corpuscular Hemoglobin Concent 33.3 32.0-36.0 g/dL Red Cell Distribution Width 13.4 11.8-14.3 % Platelet Count 174 140-450 10^3/uL Mean Platelet Volume 9.0 6.9-10.8 fL Neutrophils (%) (Auto) 78.4 37.0-80.0 % Lymphocytes (%) (Auto) 8.3 L 10.0-50.0 % Monocytes (%) (Auto) 12.8 H 0.0-12.0 % Eosinophils (%) (Auto) 0.3 0.0-7.0 % Basophils (%) (Auto) 0.2 0.0-2.0 % Neutrophils # (Auto) 8.8 H 1.6-8.6 10 ^3/uL Lymphocytes # (Auto) 0.9 0.4-5.4 10 ^3/uL Monocytes # (Auto) 1.4 H 0-1.3 10 ^3/uL Eosinophils # (Auto) 0 0-0.8 10 ^3/uL Basophils # (Auto) 0 0-0.2 10 ^3/uL Nucleated Red Blood Cells 0.0 % Sodium Level 134 L 136-145 mmol/L Potassium Level 3.5 3.5-5.1 mmol/L Chloride Level 103 98-107 mmol/L Carbon Dioxide Level 19 L 20-31 mmol/L Anion Gap 12 5-15 Blood Urea Nitrogen 11 9-23 mg/dL Creatinine 0.60 0.550-1.02 mg/dL Glomerular Filtration Rate Calc 102 >90 mL/min BUN/Creatinine Ratio 18.3 10.0-20.0 Serum Glucose 203 H 74-106 mg/dL Calcium Level 9.1 8.7-10.4 mg/dL Total Bilirubin 2.0 H 0.2-1.0 mg/dL Prothrombin Time 13.1 H 9.3-11.8 sec Prothrombin Time INR 1.26 H 0.9-1.15 Activated Partial Thromboplast Time 34.3 24.5-34.5 SEC Hemoglobin A1c 10.8 H <5.7 % A1C Lactic Acid Level 1.3 0.4-2.0 mmol/L Aspartate Amino Transferase (AST) 36 13-40 U/L Alanine Aminotransferase (ALT) 53 H 7-40 U/L Alkaline Phosphatase 199 H 46-116 U/L Total Protein 6.8 5.7-8.2 g/dL Albumin 3.8 3.2-4.8 g/dL Hepatitis B Surface Antigen Negative Negative Hepatitis C Antibody Negative Negative Test 05/02/24 20:06 Range/Units Urine Color Yellow Yellow Urine Clarity Clear Clear Urine pH 5.5 5.0-9.0 Urine Specific [place] 1.026 1.001-1.035 Urine Protein Trace H Negative Urine Ketones 1+ H Negative Urine Blood Negative Negative /uL Urine Nitrite Negative Negative Urine Bilirubin Negative Negative Urine Urobilinogen Normal Negative mg/dL Urine Leukocyte Esterase Negative Negative /uL Urine RBC 1 0 - 4 /hpf Urine Microscopic WBC 2 0-5 /HPF Urine Squamous Epithelial Cells Few <5 /hpf Urine Bacteria None seen None Seen /hpf Urine Glucose 4+ H Normal mg/dL Microbiology Date/Time Source Procedure Growth Status 05/04/24 14:09 Gallbladder Gram Stain - Final Resulted 05/04/24 14:09 Gallbladder Anaerobic Culture - Preliminary Resulted 05/04/24 14:09 Gallbladder Aerobic Culture - Preliminary Resulted 05/03/24 18:10 Blood Blood Culture - Preliminary NO GROWTH AFTER 48 HOURS OF INCUBATION. Resulted Plan/Recommendation ASSESSMENT AND PLAN: ID Problem List: - acute cholecystitis - bacteremia with gram-negative rods (pending speciation) - diabetes mellitus - hyperglycemia - leukocytosis - elevated lactic acid - non-compliance with antidiabetic medications Assessment This is a 63 y.o. female with a past medical history of diabetes mellitus and kidney stones, who presents with abdominal pain, nausea, and vomiting for the past one week. Symptoms have been worsening and are exacerbated by eating. She reports being out of her antidiabetic medications. She denies any history of gallstones. On admission, vital signs showed a temperature of 100.7?F, pulse 102, respiratory rate 20, blood pressure 121/71?mmHg, and SpO? 97% on room air. Physical exam revealed tenderness in the right upper quadrant and hyperactive bowel sounds. Laboratory results demonstrate leukocytosis with a WBC count of 18.8?K/?L on admission, decreased to 15.8?K/?L today. Lactic acid is elevated at 2.4?mmol/L. Glucose levels are in the 200s?mg/dL. CT abdomen and pelvis indicates findings compatible with uncomplicated acute cholecystitis, mild hepatomegaly, and hepatic steatosis. Blood cultures have grown gram-negative rods in one anaerobic bottle out of four. Plan: - Agree with surgical intervention for acute cholecystitis. - Continue piperacillin-tazobactam (Zosyn) for now. - Monitor blood culture speciation and sensitivities. - During cholecystectomy, if infected fluid or necrosis is encountered, please send specimens to pathology and obtain aerobic and anaerobic cultures. - Final antibiotic regimen will depend on operative findings and postoperative stability. - Address hyperglycemia; initiate insulin therapy as needed.keep BS<180 - Plan to resume antidiabetic medications postoperatively when appropriate. - Educate the patient on the importance of medication compliance. Isolation Precautions: standard Assessment and plan was discussed with the patient as written above. Plan is subject to change pending incorporation of new incoming information/diagnostics. Updates may be added as addendum at the bottom (OR TOP) of this note. Thank you for the interesting consult. ID will continue to follow. Please contact Infectious Disease for any questions or concerns. Melody Moore M.D. [facility] Ph: ? ? History: The patient's chart and medications were reviewed in detail, and the patient was seen and examined. History obtained from: patient Ms. Blake is a 63 y.o. female with a past medical history of diabetes mellitus and kidney stones, who presents with abdominal pain, nausea, and vomiting for the past one week. Symptoms have been worsening and are worse with eating. She reports being out of her antidiabetic medications. She denies any history of gallstones. Review of Systems: A complete 10-system review of systems was completed and negative except as noted in the HPI or here. ROS: - CONSTITUTIONAL: Denies weight loss, fever, and chills. - HEENT: Denies changes in vision and hearing. - RESPIRATORY: Denies shortness of breath and cough. - CV: Denies palpitations and chest pain. - GI: Reports abdominal pain, nausea, vomiting. Denies diarrhea. - : Denies dysuria and urinary frequency. - MSK: Denies myalgia and joint pain. - SKIN: Denies rash and pruritus. - NEUROLOGICAL: Denies headache and syncope. - PSYCHIATRIC: Denies recent changes in mood. Denies anxiety and depression. Past Medical History: - Diabetes mellitus - Kidney stones Past Surgical History: History reviewed. No pertinent surgical history. Home Medications: Prior to admission medications: - Patient reports being out of her antidiabetic medications. Specific medications not specified. Allergies: - No Known Allergies Family History: - History not provided. Social History: - Marital status: Not specified - Occupational history: Not specified - Tobacco Use: Denies smoking. - Alcohol Use: Denies alcohol use. - Substance Use: Denies illicit drug use. Objective: Vital Signs on Arrival: - Temp: 100.7?F - BP: 121/71?mmHg - Pulse: 102?bpm - Resp: 20?breaths per minute - SpO?: 97% on room air Most Recent Vital Signs: - Data not provided. Admission Weight: - Data not provided. BMI: - Data not provided. Physical Exam: - General: NAD - Neck: Supple. No masses. - HEENT: PERRL. Normal lids and conjunctiva. Moist mucous membranes. Oropharynx without lesions, exudates, or excessive erythema. Normal appearance of the external aspects of the nose and ears. - Heart: Regular rhythm, normal rate. No murmur. No lower extremity edema. - Lungs: Normal respiratory effort. Clear to auscultation bilaterally. No wheezes. No crackles. - Abdomen: Tender to palpation in the right upper quadrant. Hyperactive bowel sounds. Soft. Non-distended. No masses or abdominal hernia. - MSK: No digital cyanosis. Normal strength and tone in all 4 limbs. - Skin: Warm and dry, no rashes. - Neuro: Alert. No facial droop or slurred speech. Extra-ocular movements intact. Sensation intact to soft touch in all 4 limbs. - Psych: Appropriate mood. Full affect. Oriented to person, place, time, and situation. Lines: - No active lines. Diagnostic Studies: Available diagnostic studies were reviewed personally. Significant relevant results and findings are outlined below or addressed in the Assessment and Plan above. Pertinent Imaging: CT Abdomen and Pelvis Impression: 1. Findings compatible with uncomplicated acute cholecystitis. 2. Mild hepatomegaly and hepatic steatosis. Labs: - WBC: 18.8?K/?L on admission; decreased to 15.8?K/?L today. - Hemoglobin: 14.4?g/dL - Platelets: 182?K/?L - Lactic Acid: 2.4?mmol/L - Glucose: In the 200s?mg/dL - Hepatitis B Screen: Negative - Urinalysis: 2 WBCs Microbiology: - Blood Cultures: Positive for gram-negative rods in one anaerobic bottle out of four. Plan discussed with: Patient MELODY MOORE MD May 05, 2024 22:38
--- NOTE | 2024-05-05 22:39 | DVHPN2 ---
Consult Progress Note Date Seen: May 05, 2024 Subjective Patient reports: Other (S/P Cholecystectomy and resting , hasnt had a bowel movement and having some generalized abdominal pains . Laproscopic incision appears clean . fevers have stoped since 05/03 ) Objective vital signs Vital Sign Date Time Temp Pulse Resp B/P (MAP) Pulse Ox O2 Delivery O2 Flow Rate FiO2 05/05/24 20:00 120 18 92 Room Air* 0 21 05/05/24 16:30 98.3 110/76 (87) 98.3 Total Intake and Output 05/04/24 05/04/24 05/05/24 15:00 23:00 07:00 Intake Total 200 ml 700 ml 500 ml Output Total 25 ml 30 ml 100 ml Balance 175 ml 670 ml 400 ml medications Current Medications Medications Dose Ordered Sig/Devaughn Route Start Time Stop Time Status Last Admin Dose Admin Piperacillin Sod/ Tazobactam Sod 100 ml @ 100 mls/hr Q8HR IV 05/02/24 22:00 05/05/24 21:01 100 MLS/HR Diagnostic Test (Pha) 1 strip ACHS 05/02/24 22:00 05/05/24 21:03 1 STRIP Insulin Human Regular ACHS SC 05/02/24 22:00 05/05/24 21:10 3 UNITS Dextrose 50 ml UD PRN IV 05/02/24 19:30 Pantoprazole Sodium 40 mg DAILY IV 05/03/24 10:00 05/05/24 10:03 40 MG Acetaminophen 650 mg Q6HPRN PRN PO 05/02/24 19:45 05/02/24 23:17 650 MG Acetaminophen/ Hydrocodone Bitart 1 tab Q6HPRN PRN PO 05/02/24 19:45 05/05/24 21:02 1 TAB Morphine Sulfate 2 mg Q6HPRN PRN IV 05/02/24 19:45 Potassium Chloride/Sodium Chloride 1,000 ml @ 120 mls/hr Q8H20M IV 05/03/24 08:15 05/05/24 18:35 120 MLS/HR Potassium Chloride/Dextrose/ Sod Cl 1,000 ml @ 120 mls/hr Q8H20M IV 05/04/24 14:45 Metronidazole 100 ml @ 100 mls/hr Q8HR IV 05/04/24 22:00 05/05/24 21:02 100 MLS/HR Hydromorphone HCl 1 mg Q3HPRN PRN IV 05/04/24 14:45 Pantoprazole Sodium 40 mg DAILY IV 05/05/24 10:00 Ondansetron HCl 4 mg Q4HPRN PRN IV 05/04/24 14:45 Physical Exam: - General: NAD - Neck: Supple. No masses. - HEENT: PERRL. Normal lids and conjunctiva. Moist mucous membranes. Oropharynx without lesions, exudates, or excessive erythema. Normal appearance of the external aspects of the nose and ears. - Heart: Regular rhythm, normal rate. No murmur. No lower extremity edema. - Lungs: Normal respiratory effort. Clear to auscultation bilaterally. No wheezes. No crackles. - Abdomen: Tender to palpation in the right upper quadrant. Hyperactive bowel sounds. Soft. Non-distended. No masses or abdominal hernia. - MSK: No digital cyanosis. Normal strength and tone in all 4 limbs. - Skin: Warm and dry, no rashes. - Neuro: Alert. No facial droop or slurred speech. Extra-ocular movements intact. Sensation intact to soft touch in all 4 limbs. - Psych: Appropriate mood. Full affect. Oriented to person, place, time, and situation. laboratory and microbiology Laboratory Tests 05/05/24 05:31 Test 05/05/24 05:31 Range/Units Serum Glucose 203 H 74-106 mg/dL Problem List/Assessment/Plan Problems(with codes): (1) Bacteremia (2) Bacteremia due to Gram-negative bacteria (3) Uncontrolled diabetes mellitus (4) Nonspecific colitis (5) Acute cholecystitis (6) Hyperglycemia (7) Elevated lactic acid level Problem List/Assessment/Plan ID Problem List: - acute cholecystitis - bacteremia with gram-negative rods (pending speciation) - diabetes mellitus - hyperglycemia - leukocytosis - elevated lactic acid - non-compliance with antidiabetic medications Assessment This is a 63 y.o. female with a past medical history of diabetes mellitus and kidney stones, who presents with abdominal pain, nausea, and vomiting for the past one week. Symptoms have been worsening and are exacerbated by eating. She reports being out of her antidiabetic medications. She denies any history of gallstones. On admission, vital signs showed a temperature of 100.7?F, pulse 102, respiratory rate 20, blood pressure 121/71?mmHg, and SpO? 97% on room air. Physical exam revealed tenderness in the right upper quadrant and hyperactive bowel sounds. Laboratory results demonstrate leukocytosis with a WBC count of 18.8?K/?L on admission, decreased to 15.8?K/?L today. Lactic acid is elevated at 2.4?mmol/L. Glucose levels are in the 200s?mg/dL. CT abdomen and pelvis indicates findings compatible with uncomplicated acute cholecystitis, mild hepatomegaly, and hepatic steatosis. Blood cultures have grown gram-negative rods in one anaerobic bottle out of four. 05/05: whitecount is 11.2, blood cultures are growing klebsiella pneumonia that is sensitive to ceftriaxone and operative cultures are growing 2 gram negative rods , klebsiella pneumonia and E. coli and will follow up on sensitivity of these . bloody drainage coming out of drain Plan: - follow up on operative cultures sensitives , if suggest that both e coli and klebsiella are sensitive to ceftriaxone cans witch to IV ceftriaxone while in patient and send patient home with oral cefdinir 300 milligrams 2x a day for 10 days - follow up with general surgery to ensure appropriate post operative care - follow up with infectious disease to get refills of diabetes medication and insure diabetes care is optimized in setting of recent infection in 2-4 weeks if theirs ongoing abdominal pain , fevers , or chills - post operative drain management per surgery - Agree with surgical intervention for acute cholecystitis. - Continue piperacillin-tazobactam (Zosyn) for now. - Monitor blood culture speciation and sensitivities. - During cholecystectomy, if infected fluid or necrosis is encountered, please send specimens to pathology and obtain aerobic and anaerobic cultures. - Final antibiotic regimen will depend on operative findings and postoperative stability. - Address hyperglycemia; initiate insulin therapy as needed.keep BS<180 - Plan to resume antidiabetic medications postoperatively when appropriate. - Educate the patient on the importance of medication compliance. Plan discussed with: MELODY Cooper MD May 05, 2024 22:39
[2024-05-06 01:00] VITALS: BP 103/52; PULSE 73; RESP 17; TEMP 97.6; O2SAT 94
[2024-05-06 05:00] VITALS: BP 119/69; PULSE 86; RESP 17; TEMP 98.1; O2SAT 99
[2024-05-06 08:00] VITALS: PULSE 100; PULSE 79; RESP 18; O2SAT 92
[2024-05-06 08:30] VITALS: BP 115/64; PULSE 79; RESP 17; TEMP 98.2; O2SAT 96
[2024-05-06 09:05] VITALS: BP 115/64; PULSE 79; RESP 19; TEMP 36.7; O2SAT 96
--- NOTE | 2024-05-06 09:25 | DVHPN2 ---
Progress Note Date Seen: May 06, 2024 Medical Necessity Reason Pt with a Central, PICC or Fol: No Subjective Patient reports: No new complaints, Feels better Review of Systems: HEENT:Normal, CVS:Normal, RESPIRATORY:Normal, GI:Normal, :Normal, MSK:Normal, NEURO:Normal Objective vital signs Vital Sign Date Time Temp Pulse Resp B/P (MAP) Pulse Ox O2 Delivery O2 Flow Rate FiO2 05/06/24 05:00 98.1 86 17 119/69 (86) 99 98.1 05/05/24 20:00 Room Air* 0 21 Total Intake and Output 05/05/24 05/05/24 05/06/24 15:00 23:00 07:00 Intake Total 1500 ml 420 ml Output Total 875 ml Balance 1500 ml -455 ml medications Current Medications Medications Dose Ordered Sig/Devaughn Route Start Time Stop Time Status Last Admin Dose Admin Piperacillin Sod/ Tazobactam Sod 100 ml @ 100 mls/hr Q8HR IV 05/02/24 22:00 05/06/24 05:20 100 MLS/HR Diagnostic Test (Pha) 1 strip ACHS 05/02/24 22:00 05/06/24 06:43 1 STRIP Insulin Human Regular ACHS SC 05/02/24 22:00 05/06/24 06:07 6 UNITS Dextrose 50 ml UD PRN IV 05/02/24 19:30 Pantoprazole Sodium 40 mg DAILY IV 05/03/24 10:00 05/05/24 10:03 40 MG Acetaminophen 650 mg Q6HPRN PRN PO 05/02/24 19:45 05/02/24 23:17 650 MG Acetaminophen/ Hydrocodone Bitart 1 tab Q6HPRN PRN PO 05/02/24 19:45 05/06/24 05:20 1 TAB Morphine Sulfate 2 mg Q6HPRN PRN IV 05/02/24 19:45 Potassium Chloride/Sodium Chloride 1,000 ml @ 120 mls/hr Q8H20M IV 05/03/24 08:15 05/06/24 05:25 120 MLS/HR Potassium Chloride/Dextrose/ Sod Cl 1,000 ml @ 120 mls/hr Q8H20M IV 05/04/24 14:45 Metronidazole 100 ml @ 100 mls/hr Q8HR IV 05/04/24 22:00 05/06/24 05:20 100 MLS/HR Hydromorphone HCl 1 mg Q3HPRN PRN IV 05/04/24 14:45 Pantoprazole Sodium 40 mg DAILY IV 05/05/24 10:00 Ondansetron HCl 4 mg Q4HPRN PRN IV 05/04/24 14:45 Examination: GENERAL:Normal, HEENT:Normal, NECK:Normal, LUNGS:Normal, CVS:Normal, ABDOMEN:Normal, MSK:Normal, SKIN:Normal, NEURO:Normal laboratory and microbiology Laboratory Tests 05/05/24 05:31 Test 05/05/24 05:31 Range/Units Serum Glucose 203 H 74-106 mg/dL Problem List/Assessment/Plan Problem List/Assessment/Plan 05/06/24 no new complaints, abdomen soft, non distended, appropaitely tender, passing gas, no bm, tolerating diet patient to ambulate, full liquid diet advance diet as tolerated Plan discussed with: Patient, Other (Dr. Lorenzo) LAVONNE LEPE [employer] May 06, 2024 09:25
[2024-05-06 14:30] VITALS: BP 105/69; PULSE 102; RESP 20; TEMP 98.2; O2SAT 96
--- NOTE | 2024-05-08 13:18 | DVHPN2 ---
Consult Progress Note Date Seen: May 06, 2024 Subjective Patient reports: Other (tolerating a liquid diet , up and ambulating . mild abdominal pain over the site of the drain and the drain putting out 100ml of fluid in right upper quadrant ) Objective vital signs Vital Sign Date Time Temp Pulse Resp B/P (MAP) Pulse Ox O2 Delivery O2 Flow Rate FiO2 05/06/24 14:30 98.2 102 20 105/69 (81) 96 98.2 05/06/24 08:00 Room Air* 0 21 medications Physical Exam: - General: NAD - Neck: Supple. No masses. - HEENT: PERRL. Normal lids and conjunctiva. Moist mucous membranes. Oropharynx without lesions, exudates, or excessive erythema. Normal appearance of the external aspects of the nose and ears. - Heart: Regular rhythm, normal rate. No murmur. No lower extremity edema. - Lungs: Normal respiratory effort. Clear to auscultation bilaterally. No wheezes. No crackles. - Abdomen: Tender to palpation in the right upper quadrant. Hyperactive bowel sounds. Soft. Non-distended. No masses or abdominal hernia. - MSK: No digital cyanosis. Normal strength and tone in all 4 limbs. - Skin: Warm and dry, no rashes. - Neuro: Alert. No facial droop or slurred speech. Extra-ocular movements intact. Sensation intact to soft touch in all 4 limbs. - Psych: Appropriate mood. Full affect. Oriented to person, place, time, and situation. laboratory and microbiology Laboratory Tests 05/05/24 05:31 Test 05/05/24 05:31 Range/Units Serum Glucose 203 H 74-106 mg/dL Problem List/Assessment/Plan Problems(with codes): (1) Uncontrolled diabetes mellitus (2) Nonspecific colitis (3) Acute cholecystitis (4) Bacteremia (5) Hyperglycemia (6) Bacteremia due to Gram-negative bacteria (7) Elevated lactic acid level Problem List/Assessment/Plan ID Problem List: - acute cholecystitis - bacteremia with gram-negative rods (pending speciation) - diabetes mellitus - hyperglycemia - leukocytosis - elevated lactic acid - non-compliance with antidiabetic medications Assessment This is a 63 y.o. female with a past medical history of diabetes mellitus and kidney stones, who presents with abdominal pain, nausea, and vomiting for the past one week. Symptoms have been worsening and are exacerbated by eating. She reports being out of her antidiabetic medications. She denies any history of gallstones. On admission, vital signs showed a temperature of 100.7?F, pulse 102, respiratory rate 20, blood pressure 121/71?mmHg, and SpO? 97% on room air. Physical exam revealed tenderness in the right upper quadrant and hyperactive bowel sounds. Laboratory results demonstrate leukocytosis with a WBC count of 18.8?K/?L on admission, decreased to 15.8?K/?L today. Lactic acid is elevated at 2.4?mmol/L. Glucose levels are in the 200s?mg/dL. CT abdomen and pelvis indicates findings compatible with uncomplicated acute cholecystitis, mild hepatomegaly, and hepatic steatosis. Blood cultures have grown gram-negative rods in one anaerobic bottle out of four. 05/05: whitecount is 11.2, blood cultures are growing klebsiella pneumonia that is sensitive to ceftriaxone and operative cultures are growing 2 gram negative rods , klebsiella pneumonia and E. coli and will follow up on sensitivity of these . bloody drainage coming out of drain 05/06: operative cultures shows both klebsiella and E coli are sensitive to ceftriaxone Plan: - stop Zosyn - Start IV ceftriaxone - when patient is ready for discharge oral cefdinir 300 milligrams 2x a day for 10 days is recommended - follow up with general surgery to ensure appropriate post operative care - follow up with infectious disease to get refills of diabetes medication and insure diabetes care is optimized in setting of recent infection in 2-4 weeks if theirs ongoing abdominal pain , fevers , or chills - post operative drain management per surgery - Agree with surgical intervention for acute cholecystitis - Monitor blood culture speciation and sensitivities. - During cholecystectomy, if infected fluid or necrosis is encountered, please send specimens to pathology and obtain aerobic and anaerobic cultures. - Final antibiotic regimen will depend on operative findings and postoperative stability. - Address hyperglycemia; initiate insulin therapy as needed.keep BS<180 - Plan to resume antidiabetic medications postoperatively when appropriate. - Educate the patient on the importance of medication compliance. Plan discussed with: MELODY Cooper MD May 08, 2024 13:13
== END 2024-05-06 19:15 | disposition home or self-care (01) | DRG 710 ==
LOC: EDBD 13:28 → ER 13:28 → OVERFLOW 19:21 → TELE 19:33 → EAST 23:44 → TELE-E-ADS 05-05 00:21
PROVIDERS: ADMIT Nurse Practitioner Family; ATTEND Nurse Practitioner Family
PROC: 0FT44ZZ Resection of Gallbladder, Percutaneous Endoscopic Approach (ICD-10-PCS; principal; 2024-05-04 13:46)
DX: A41.9 Sepsis, unspecified organism (principal); N17.0 Acute kidney failure with tubular necrosis; E87.20 Acidosis, unspecified; R16.0 Hepatomegaly, not elsewhere classified; K80.00 Calculus of gallbladder with acute cholecystitis without obstruction; E87.1 Hypo-osmolality and hyponatremia; K83.09 Other cholangitis; E11.65 Type 2 diabetes mellitus with hyperglycemia; E66.9 Obesity, unspecified; K76.0 Fatty (change of) liver, not elsewhere classified; K52.9 Noninfective gastroenteritis and colitis, unspecified; B96.89 Other specified bacterial agents as the cause of diseases classified elsewhere; Z87.442 Personal history of urinary calculi; Z87.891 Personal history of nicotine dependence; Z79.84 Long term (current) use of oral hypoglycemic drugs; B96.1 Klebsiella pneumoniae [K. pneumoniae] as the cause of diseases classified elsewhere; Z68.25 Body mass index [BMI] 25.0-25.9, adult
CPT/HCPCS: 36415; 71045; 74176; 80048; 80053; 81001; 82247; 82962; 83036; 83605; 85025; 85610; 85730; 86803; 86850; 86900; 86901; 87040; 87070; 87075; 87077; 87186; 87205; 87340; 93005; G0378; J0131; J1815; J2405; J2470; J2543; J2704; J3430; J3490